=== PATIENT | female | born 1955 | race Caucasian/White ===

== ENCOUNTER 2019-01-26 17:31 | Emergency (ER) | payer MEDICARE, MEDICAID ==
[~2019-01-26] VITALS: Ht 172.7 cm; Wt 74.0 kg
[~2019-01-26 17:31] MED LIST: ALBU18HF INH; CLON1TAB23 PO; FLUO20CA8 PO; FLUT1DIS IH; HYDR50TA13 PO; LEVO1CAP PO; OXYC5TAB3 PO; SENN-178 PO; TIOT18CA INH
[2019-01-26 17:34] VITALS: BP 138/78
--- NOTE | 2019-01-26 18:45 | NUR ---
pt took much encouragement from previous rn, this rn, ed pa, and security in order to leave. pt was educated at length about her condition and appropriate follow up. pt not receptive to education. security now at bedside.
== END 2019-01-26 18:56 | disposition home or self-care (01) ==
LOC: ED 18:50
DX: J44.9 Chronic obstructive pulmonary disease, unspecified (principal); Z76.0 Encounter for issue of repeat prescription
CPT/HCPCS: 93005; 99283